=== PATIENT | male | born 1955 | race Caucasian/White ===

== ENCOUNTER → 2017-02-16 | Outpatient (CLI) | payer BC ==
[~2017-02-16] MED LIST: DILT300C24 PO; METO-217 PO; VALS1TAB33 PO
--- NOTE | 2017-02-16 16:36 | DIAGNOSTIC IMAGING REPORT ---
RIGHT KNEE 2 VIEWS CLINICAL HISTORY: Right knee pain. FINDINGS: AP and lateral views of the right knee are obtained. No prior studies are available for comparison at the time of dictation. The skeletal structures are well mineralized. No fracture is seen. There is mild to moderate narrowing at the patellofemoral articulation. Only minimal narrowing is seen in the medial and lateral compartments. There are medial marginal osteophytes and small patellar enthesophytes. Minimal degenerative beaking is noted in the tibial spine. There is no significant joint effusion. Mild soft tissue swelling is noted. IMPRESSION: 1. Mild soft tissue swelling with no acute bony abnormality seen in the right knee. 2. Mild degenerative change as above. Electronically signed by: Sergo Gotti M.D. 02/16/2017 4:35 PM Dictated Date/Time: 02/16/2017 4:34 PM
== END | disposition home or self-care (01) ==
LOC: C.RAD1850 16:24
PROVIDERS: ATTEND Family Medicine
DX: M25.561 Pain in right knee (principal)